=== PATIENT | male | born 1990 | race Caucasian/White ===

== ENCOUNTER 2017-02-02 16:19 | Emergency (ER) | payer OTHER ==
[~2017-02-02] VITALS: Ht 177.8 cm; Wt 101.2 kg
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
[2017-02-02 16:22] VITALS: BP_SYST 164
--- NOTE | 2017-02-02 16:52 | NUR ---
Informed Dr. Josh BATES needed
--- NOTE | 2017-02-02 17:03 | NUR ---
NARENDRA Holbrook at bedside examining patient.
--- NOTE | 2017-02-02 17:13 | NUR ---
Pt was given pain medication, no noted adverse reaction, will continue to monitor.
[2017-02-02] MEDS ORDERED: traMADol HCL HCL 50 MG TABLET (ULTRAM) PO ONE (17:15)
[2017-02-02] MEDS ORDERED: IBUPROFEN 800 MG TABLET PO ONE (17:15)
[2017-02-02 17:23] VITALS: BP_SYST 150
--- NOTE | 2017-02-02 17:23 | NUR ---
Patient given written and verbal discharge instructions and verbalizes understanding. ER MD discussed with patient the results and treatment provided. Patient in stable condition. ID arm band removed. No Rx given. Patient educated on pain management and to follow up with PMD. Pain Scale 6. Dr Moreno is aware, pain medication was given here in the ER [facility] for questions provided and answered.
== END 2017-02-02 17:23 ==
LOC: SED 16:19
DX: G89.29 Other chronic pain (principal); M79.661 Pain in right lower leg
CPT/HCPCS: 99283; J7030